=== PATIENT | female | born 1950 | race Caucasian/White ===

== ENCOUNTER 2017-06-09 08:22 | Emergency (ER) | payer MEDICARE ==
[2017-06-09] MEDS ORDERED: Naproxen TAB* 250 MG PO ONE (10:25)
--- NOTE | 2017-06-09 10:32 | UC ---
Truncal Trauma HPI - HPI Summary HPI Summary: Was helping put granddaughter to bed last night and fell out of bed, striking corner of table and landing on R rib cage. Had significant pain immediately, today has large scratch with bruise on R abdomen, but pain is focal on R lower anterolateral ribs. Pain worse with sneezing, deep breathing, and movement. Was not able to get much rest last night. - History Of Current Complaint Chief Complaint: UCUpperExtremity Stated Complaint: RIB INJURY Time Seen by Provider: 06/09/17 10:09 Hx Obtained From: Patient Hx Last Menstrual Period: "Years ago." ?: No Onset/Duration: Sudden Onset Onset Of Pain: Immediate Severity Initially: Moderate Severity Currently: Severe Mechanism Of Injury: Fall From Height Of: - ~2 feet Aggravating Factor(s): Movement, Deep Breathing, Cough Alleviating factor(s): Rest, Ice - Allergies/Home Medications Allergies/Adverse Reactions: Allergies Allergy/AdvReac Type Severity Reaction Status Date / Time Tetracycline Allergy Severe Unknown Verified 06/09/17 08:38 Reaction Details Atorvastatin [From Lipitor] Allergy Unknown Verified 06/09/17 08:38 Reaction Details Clarithromycin [From Biaxin] Allergy Unknown Verified 06/09/17 08:38 Reaction Details Methylprednisolone Allergy Unknown Verified 06/09/17 08:38 [From Medrol] Reaction Details Simvastatin Allergy Unknown Verified 06/09/17 08:38 Reaction Details erythromycin Allergy Severe Rash Uncoded 06/09/17 08:38 amox-tr Allergy Intermediate Vomiting Uncoded 06/09/17 08:38 PMH/Surg Hx/FS Hx/Imm Hx Respiratory History: Asthma Other History Of: Anticoagulant Therapy - Aspirin for health. Negative For: HIV, Hepatitis B, Hepatitis C - Surgical History Surgical History: Yes Surgery Procedure, Year, and Place: Hysterectomy, Urethra musculature collapse repair - Family History Known Family History: Positive: Cardiac Disease Negative: Hypertension, Diabetes - Social History Alcohol Use: Weekly Alcohol Amount: 2-3 glasses of wine Substance Use Type: None Smoking Status (MU): Never Smoked Tobacco Review of Systems Constitutional: Negative Skin: Bruising Eyes: Negative ENT: Negative Respiratory: Negative Cardiovascular: Negative Gastrointestinal: Negative Genitourinary: Negative Motor: Negative Neurovascular: Negative Musculoskeletal: Arthralgia - R ribs Neurological: Negative Psychological: Negative Is Patient Immunocompromised?: No All Other Systems Reviewed And Are Negative: Yes Physical Exam Triage Information Reviewed: Yes Appearance: Well-Nourished, Pain Distress - marked, wincing, grimacing, unable to take deep breaths Vital Signs: Initial Vital Signs Temp 97.8 F 06/09/17 08:33 Pulse 77 06/09/17 08:33 Resp 18 06/09/17 08:33 BP 128/72 06/09/17 08:33 Pulse Ox 97 06/09/17 08:33 Vital Signs Reviewed: Yes Eye Exam: Normal Eyes: Positive: Conjunctiva Clear ENT Exam: Normal ENT: Positive: Normal ENT inspection, Hearing grossly normal, Pharynx normal, TMs normal. Negative: TM bulging, TM dull, TM red Dental Exam: Normal Neck exam: Normal Neck: Positive: Supple, Nontender, No Lymphadenopathy Respiratory: Positive: Lungs clear, Normal breath sounds Cardiovascular Exam: Normal Cardiovascular: Positive: RRR, No Murmur Musculoskeletal Exam: Other - marked tenderness over R lower anterolateral ribs Musculoskeletal: Positive: Strength Intact, ROM Limited @ - trunk due to pain Neurological Exam: Normal Neurological: Positive: Alert Psychological Exam: Normal Skin Exam: Normal Truncal Trauma Course/Dx - Differential Dx/Diagnosis Provider Diagnoses: R nondisplaced 7th and 8th rib fractures. urinary odor Discharge - Discharge Plan Condition: Stable Disposition: HOME Prescriptions: HYDROcodone/ACETAMIN 5-325 MG* [[place] 5-325 TAB*] 1 tab PO Q4H PRN #15 tab MDD 6 PRN Reason: Pain Patient Education Materials: Rib Fracture (ED) Referrals: Anam Sanchez MD [Primary Care Provider] - Additional Instructions: Keep using naproxen twice daily as needed for pain. Can use compression for short periods of time. Make sure you stay as active as possible, and make sure you are taking deep breaths every hour. Urine culture pending. Please follow up with Dr. Sanchez's office in a week for a recheck (to take vital signs, listen to your lungs, and check in on pain control).
[2017-06-09 10:52] VITALS: BP 139/85
--- NOTE | 2017-06-09 11:08 | RAD ---
Indication: RIGHT lower lateral/anterior rib pain for one day post fall from bed. Remote history of rib fractures. Comparison: August 02, 2014 Technique: Dual energy PA chest and 4 view RIGHT rib series. Report: Nondisplaced fractures of the RIGHT seventh and eighth ribs laterally. Negative for pleural effusion or pneumothorax. Clear lungs. The heart, pulmonary vasculature, and mediastinal contours are unremarkable. IMPRESSION: Nondisplaced RIGHT seventh and eighth rib fractures. Negative for pneumothorax.
--- NOTE | 2017-06-11 14:52 | ED ---
Progress - Progress Note Progress Note: Urine culture positive Enterococcus Faecalis >100,000. Please call patient and inform of urine culture indicating presence of UTI. Macrobid 100mg PO BID x 5 days. Please inform patient that sensitivity results are pending and will receive a call if change in antibiotic is indicated. Course/Dx - Diagnoses Provider Diagnoses: Urinary tract infection
== END 2017-06-09 11:29 | disposition home or self-care (01) ==
LOC: UCEAST 08:22
DX: S22.41XA Multiple fractures of ribs, right side, initial encounter for closed fracture (principal); W06.XXXA Fall from bed, initial encounter; Y93.89 Activity, other specified; Y92.003 Bedroom of unspecified non-institutional (private) residence as the place of occurrence of the external cause; Y99.9 Unspecified external cause status; R82.90 Unspecified abnormal findings in urine; B95.2 Enterococcus as the cause of diseases classified elsewhere; Z79.82 Long term (current) use of aspirin
CPT/HCPCS: 81003; 87077; 87086; 87186; 99212; A9270-GY; G0463

== ENCOUNTER 2017-08-23 08:08 | Emergency (ER) | payer MEDICARE ==
[2017-08-23 08:29] VITALS: BP 126/84
--- NOTE | 2017-08-23 08:38 | UC ---
Respiratory Complaint HPI - HPI Summary HPI Summary: 67 yo female ill for days with f/c, ALVES, runny nose, cough,fatigue, sore throat, ear ache n/v x 1 - History of Current Complaint Chief Complaint: UCGeneralIllness Stated Complaint: runny nose, aches, cough, and vomiting Time Seen by Provider: 08/23/17 08:20 Hx Obtained From: Patient Hx Last Menstrual Period: "Years ago." Onset/Duration: Gradual Onset, Lasting Days Timing: Constant Severity Initially: Moderate Severity Currently: Moderate Pain Intensity: 5 Pain Scale Used: 0-10 Numeric Character: Cough: Productive Aggravating Factors: Nothing Alleviating Factors: Nothing Associated Signs And Symptoms: Positive: Fever, Chills, Nasal Congestion, Sinus Discomfort - Allergies/Home Medications Allergies/Adverse Reactions: Allergies Allergy/AdvReac Type Severity Reaction Status Date / Time MS Tetracycline Allergy Severe Unknown Verified 08/19/17 13:31 [Tetracycline] Reaction Details MS Atorvastatin Allergy Unknown Verified 08/19/17 13:31 [From Lipitor] Reaction Details MS Clarithromycin Allergy Unknown Verified 08/19/17 13:31 [From Biaxin] Reaction Details MS Methylprednisolone Allergy Unknown Verified 08/19/17 13:31 [From Medrol] Reaction Details MS Simvastatin [Simvastatin] Allergy Unknown Verified 08/19/17 13:31 Reaction Details erythromycin Allergy Severe Rash Uncoded 08/19/17 13:31 amox-tr Allergy Intermediate Vomiting Uncoded 08/19/17 13:31 PMH/Surg Hx/FS Hx/Imm Hx Previously Healthy: Yes Respiratory History: Pneumonia Psychological History: Anxiety Other History Of: Anticoagulant Therapy - Aspirin for health. Negative For: HIV, Hepatitis B, Hepatitis C - Surgical History Surgical History: Yes Surgery Procedure, Year, and Place: Hysterectomy, Urethra musculature collapse repair 30+ years ago - Family History Known Family History: Positive: Cardiac Disease Negative: Hypertension, Diabetes - Social History Alcohol Use: Occasionally Alcohol Amount: 1 glasses of wine Substance Use Type: None Smoking Status (MU): Never Smoked Tobacco Review of Systems Constitutional: Fever, Chills, Fatigue Skin: Negative Eyes: Negative ENT: Sore Throat, Ear Ache, Nasal Discharge, Sinus Congestion Respiratory: Cough Cardiovascular: Negative Gastrointestinal: Negative Genitourinary: Negative Motor: Negative Neurovascular: Negative Musculoskeletal: Myalgia Neurological: Headache Psychological: Negative Is Patient Immunocompromised?: No All Other Systems Reviewed And Are Negative: Yes Physical Exam Triage Information Reviewed: Yes Appearance: Well-Appearing, No Pain Distress, Well-Nourished Vital Signs: Initial Vital Signs Temp 98.1 F 08/23/17 08:26 Pulse 90 08/23/17 08:26 Resp 16 08/23/17 08:26 BP 126/84 08/23/17 08:26 Pulse Ox 98 08/23/17 08:26 Eyes: Positive: Conjunctiva Clear ENT: Positive: Nasal congestion, Nasal drainage, Uvula midline. Negative: Hearing grossly normal, Pharynx normal, Trismus, Muffled voice, Hoarse voice, Sinus tenderness Neck: Positive: Supple, Nontender, No Lymphadenopathy Respiratory: Positive: Lungs clear, Normal breath sounds, No respiratory distress, No accessory muscle use Cardiovascular: Positive: RRR, No Murmur Abdominal Exam: Normal Musculoskeletal: Positive: ROM Intact, No Edema Neurological: Positive: Alert Psychological Exam: Normal Skin Exam: Normal UC Diagnostic Evaluation - Laboratory Pertinent Lab Values Are: WNL - influenza (-) O2 Sat by Pulse Oximetry: 98 - normal/not hypoxic - Radiology Xray Interpretation: No Acute Changes Radiology Interpretation Completed By: Radiologist Respiratory Course/Dx - Differential Dx/Diagnosis Provider Diagnoses: viral illness. acute cough Discharge - Discharge Plan Condition: Stable Disposition: HOME Prescriptions: Benzonatate CAP* [Tessalon CAP*] 100 - 200 mg PO TID PRN #28 cap PRN Reason: Cough Patient Education Materials: Acute Cough (ED) Referrals: Anam Sanchez MD [Primary Care Provider] - 1 Day (recheck in 1-2 days ) Additional Instructions: rest fluids recheck with your MD early this week
--- NOTE | 2017-08-23 09:43 | RAD ---
INDICATION: Fever and cough x1 week COMPARISON: Most recent comparison chest x-rays dated August 02, 2014 TECHNIQUE: PA and lateral views of the chest were obtained. FINDINGS: The heart and mediastinum are normal in size and contour. The lungs are grossly clear. There is no evidence of large pleural effusion. Visualized bones are normal for the patient's age. There is no radiographic evidence of free air beneath the diaphragm IMPRESSION: No radiographic evidence of acute cardiopulmonary disease.
== END 2017-08-23 10:03 | disposition home or self-care (01) ==
LOC: UCEAST 08:08
DX: B34.9 Viral infection, unspecified (principal); R05 Cough; F41.9 Anxiety disorder, unspecified; Z79.82 Long term (current) use of aspirin; Z88.1 Allergy status to other antibiotic agents; Z88.8 Allergy status to other drugs, medicaments and biological substances; Z90.710 Acquired absence of both cervix and uterus
CPT/HCPCS: 71046; 87502; 99212; G0463

== ENCOUNTER 2017-09-01 10:55 | Day surgery (SDC) | payer MEDICARE ==
[~2017-09-01 10:55] MED LIST: Acetaminophen TAB* 325 MG PO PRN; Buffered Lidocaine 0.9% SYRIN* 5 ML/SYR SYRINGE INTRADERM ONE
[2017-09-01] MEDS ORDERED: Midazolam* 1 MG/ML 2 ML VIAL (2 MG) ONE ×3 (13:03→14:34)
[2017-09-01] MEDS ORDERED: fentaNYL* 50 MCG/ML 2 ML VIAL (100 MCG VIAL) ONE (13:03)
[2017-09-01] MEDS ORDERED: Lidocaine 1% MPF wEPI 200,000* 30 ML SDV ONE (13:24)
[2017-09-01] MEDS ORDERED: Bacitracin OPHTH.OINT* 3.5 GM ONE (13:24)
[2017-09-01] MEDS ORDERED: BSS OPTH.SOL* BTL ONE (13:24)
[2017-09-01 15:07] VITALS: BP 135/70
--- NOTE | 2017-09-02 13:21 | OP ---
DATE OF OPERATION: 09/01/17 [facility] DATE OF : 52 SURGEON: Marquis Iqbal MD SSN/SSBN ASSISTANT NAVIGATOR: None. ANESTHESIA: Local MAC. PRE-OP DIAGNOSIS: Bilateral upper lid blepharochalasis. POST-OP DIAGNOSIS: Bilateral upper lid blepharochalasis. OPERATIVE PROCEDURE: Bilateral upper lid blepharoplasty. COMPLICATIONS: None. BLOOD LOSS: Minimal. DESCRIPTION OF PROCEDURE: The patient was seen preoperatively in the holding area where berumen were made to delineate the proposed skin muscle excision. These berumen paralleled the original lid crease and care was taken to leave over 20 mm of healthy skin. The patient was subsequently brought to the operating room and given a small amount of intravenous sedation. Approximately 1.5 cc of 1 % lidocaine with epinephrine was infiltrated under the skin in each eyelid. The patient was then prepped and draped in usual sterile fashion for ophthalmic surgery and attention was directed to the right upper eyelid. A #15 [employer]- Jay blade was used to incise along the previously marked template. A flap of skin and orbicularis was raised and removed using sharp and blunt dissection with a Patricio scissor. Hemostasis was achieved with cauterization. The septum was violated in a horizontal fashion with Patricio scissors. Gentle pressure on the orbit allowed fat to protrude. Central and nasal fat pads were sequentially clamped, cut and cauterized. No active bleeding is elicited, so the skin muscle was closed in the single layer using a running 6-0 gut suture. Attention was then directed to the contralateral upper eyelid where the exact same procedure was performed. At the end of the case, a small amount of bacitracin ointment was placed. The patient was brought to the recovery room in stable condition with postoperative instructions and followup appointment given. [id number]/[facility] #: [id number] PURVI
== END 2017-09-01 15:25 | disposition home or self-care (01) ==
LOC: OREAST 10:55
PROVIDERS: ATTEND Ophthalmology
DX: H02.34 Blepharochalasis left upper eyelid (principal); H02.31 Blepharochalasis right upper eyelid; G43.009 Migraine without aura, not intractable, without status migrainosus; F41.1 Generalized anxiety disorder; F34.1 Dysthymic disorder; E78.4 Other hyperlipidemia; J45.909 Unspecified asthma, uncomplicated
CPT/HCPCS: A9270-GY; J2001; J2250; J3010

== ENCOUNTER 2019-01-05 10:27 | Day surgery (SDC) | payer MEDICARE, OTHER ==
[~2019-01-05 10:27] MED LIST changes: -Acetaminophen TAB* 325 MG PO PRN; -Buffered Lidocaine 0.9% SYRIN* 5 ML/SYR SYRINGE INTRADERM ONE; +Buffered Lidocaine 1% SYRIN* 1 ML/SYRINGE INTRADERM ONE; +Dexamethasone TAB* 4 MG PO ONE; +DiMENhydriNATE IV* 50 MG/ML VIAL IV PUSH PRN; +Famotidine IV* 10 MG/ML 2 ML (20 mg) IV ONE; +Lactated Ringers 1000 ML Bag* 1,000 ML IV SCH; +Morphine 4 MG/ML VIAL (1 ml) 4 MG/ML VIAL IV PRN; +Naloxone* 0.4 MG/ML 1 ML VIAL IV PRN; +Ondansetron TAB* 4 MG PO ONE; +PROCHLORPERAZINE INJ 5 MG/ML 2 ML VIAL IV PRN; +Scopolamine 1.5 mg* PATCH TRANSDERM PRN; +fentaNYL* 50 MCG/ML 2 ML VIAL (100 MCG VIAL) IV PRN; +oxyCODONE/Acetamin 5/325 MG* TAB PO PRN
[2019-01-05] MEDS ORDERED: Dexamethasone TAB* 4 MG ONE (11:19)
[2019-01-05] MEDS ORDERED: Ondansetron ODT TAB* 4 MG ONE (11:19)
[2019-01-05] MEDS ORDERED: Famotidine IV* 10 MG/ML 2 ML (20 mg) ONE (11:20)
[2019-01-05] MEDS ORDERED: Buffered Lidocaine 1% SYRIN* 1 ML/SYRINGE INTRADERM ONE (11:20)
[2019-01-05] MEDS ORDERED: KETAMINE HCL* 50 MG/ML 10 ML VIAL ONE (11:28)
[2019-01-05] MEDS ORDERED: fentaNYL* 50 MCG/ML 2 ML VIAL (100 MCG VIAL) ONE (11:28)
[2019-01-05] MEDS ORDERED: Midazolam* 1 MG/ML 5 ML VIAL (5 MG) ONE (11:28)
[2019-01-05] MEDS ORDERED: Oxymetazoline 0.05% NASAL SPR* 15 ML BTL ONE (12:02)
[2019-01-05] MEDS ORDERED: Lidocaine 2% EPI 1:200000 MPF*10-20 ML VIAL ONE (12:02)
[2019-01-05] MEDS ORDERED: Ketorolac INJ* 30 MG/ML 1 ML VIAL ONE (12:15)
[2019-01-05] MEDS ORDERED: Propofol* 10 MG/ML 20 ML BTL ONE (12:15)
[2019-01-05] MEDS ORDERED: Lidocaine 2% PF * 5 ML VIAL ONE (12:15)
[2019-01-05 13:15] VITALS: BP 130/90
--- NOTE | 2019-01-05 13:18 | OP ---
OPERATIVE REPORT: DATE OF OPERATION: 01/05/19 DATE OF : 52 SURGEON: Nigel Mayer MD. PRE-OP DIAGNOSES: Subsequent nasal fracture with dorsal hump and nasal dyspnea with hypertrophied na ada turbinates. POST-OP DIAGNOSIS: Subsequent nasal fracture with dorsal hump and nasal dyspnea with hypertrophied n kinga turbinates. OPERATIVE PROCEDURES: Resection of posterior dorsal nasal hump and submucosal resection of inferior turbinates. INDICATION: This 68-year-old female with previous history of nasal fracture at the time elected not to have any closed reduction, but subsequent to that, she had a large dorsal hump. She wears glasses and found that it was constantly irritated, sometimes ulcerated, and oftentimes uncomfortable with a large sharp projection in the dorsum of her nose. She also had had because of her injury some nasal congestion, which appeared to be contributed with the turbinate hypertrophy. DESCRIPTION OF PROCEDURE: The patient was taken to the operating room, general anesthetic was given, the patient was intubated with LMA. Nose was decongested with Afrin-placed pledgets. Subsequently, 2% lidocaine with epinephrine was introduced into the junction between the upper cartilage and the j unction of the nasal bone. Small incision was made. Periosteal elevator was used to elevate the per iosteum. Subsequently, a rasp was used to shave off the bony projection. The area was suctioned out and cleaned with some irrigation. The incision was closed with chromic. Next, we turned our attent ion to the inferior turbinates. A small incision of the inferior turbinate mucosa was carried out. Submucosal resection was carried out and a subsequent cautery was carried out on both sides for hemos tasis. Once adequate hemostasis obtained, the patient was awakened, extubated, and sent to recovery room in stable condition. COUNTS: Instrument and sponge counts were correct. BLOOD LOSS: Minimal. [id number]/[facility] #: [id number]
[2019-01-08] MEDS ORDERED: Scopolamine PATCH Remove* 1 NOTE MISC PATCH OFF ONE (05:47)
== END 2019-01-05 14:05 | disposition home or self-care (01) ==
LOC: OR 10:27
PROVIDERS: ATTEND Otolaryngology
DX: M95.0 Acquired deformity of nose (principal); J34.3 Hypertrophy of nasal turbinates
CPT/HCPCS: A9270-GY; J1885; J2250; J2704; J3010; J8540

== ENCOUNTER 2019-09-27 06:17 | Day surgery (SDC) | payer MEDICARE ==
[~2019-09-27 06:17] MED LIST changes: +Acetaminophen TAB* 325 MG PO PRN; -Dexamethasone TAB* 4 MG PO ONE; -DiMENhydriNATE IV* 50 MG/ML VIAL IV PUSH PRN; -Famotidine IV* 10 MG/ML 2 ML (20 mg) IV ONE; -Lactated Ringers 1000 ML Bag* 1,000 ML IV SCH; -Morphine 4 MG/ML VIAL (1 ml) 4 MG/ML VIAL IV PRN; -Naloxone* 0.4 MG/ML 1 ML VIAL IV PRN; -Ondansetron TAB* 4 MG PO ONE; -PROCHLORPERAZINE INJ 5 MG/ML 2 ML VIAL IV PRN; -Scopolamine 1.5 mg* PATCH TRANSDERM PRN; -fentaNYL* 50 MCG/ML 2 ML VIAL (100 MCG VIAL) IV PRN; -oxyCODONE/Acetamin 5/325 MG* TAB PO PRN
[2019-09-27] MEDS ORDERED: fentaNYL* 50 MCG/ML 2 ML VIAL (100 MCG VIAL) ONE (07:26)
[2019-09-27] MEDS ORDERED: Midazolam* 1 MG/ML 5 ML VIAL (5 MG) ONE (07:26)
[2019-09-27 08:12] VITALS: BP 124/72
[2019-09-27] MEDS ORDERED: Cyclopentolate 1% OPTH.SOL* 2 ML BTL ONE (11:01)
[2019-09-27] MEDS ORDERED: Phenylephrine OPHTH SOL 2.5%* 2 ML ONE (11:01)
[2019-09-27] MEDS ORDERED: Ketorolac 0.5% OPHTH (NF) 0.5 % 5 ML BTL ONE (11:01)
[2019-09-27] MEDS ORDERED: Tropicamide 1% OPTH.SOL* BTL ONE (11:01)
[2019-09-27] MEDS ORDERED: Tetracaine 0.5% OPTH.SOL 4 ML* 1 DROP BTL ONE (11:01)
[2019-09-27] MEDS ORDERED: Neomycin/Polymy/Dex OPHTH.OIN* 3.5 GM ONE (11:01)
[2019-09-27] MEDS ORDERED: Lidocaine 1% MPF ** 5 ML VIAL ONE (11:01)
[2019-09-27] MEDS ORDERED: Phenylephr/Ketorolac 1%/0.3% OPH DROP BTL ONE (11:28)
--- NOTE | 2019-09-28 01:05 | OP ---
DATE OF OPERATION: 09/27/19 [facility] DATE OF : 52 SURGEON: Marquis Iqbal MD MASTER [employer]: None. ANESTHESIA: Topical with intravenous sedation. PRE-OP DIAGNOSIS: Cataract with astigmatism, left eye. POST-OP DIAGNOSIS: Cataract with astigmatism, left eye. OPERATIVE PROCEDURE: Phacoemulsification and cataract extraction with posterior chamber toric intraocular lens implant, left eye. COMPLICATIONS: None. ESTIMATED BLOOD LOSS: None. DESCRIPTION OF PROCEDURE: The patient was brought to the operating room and given intravenous sedation. A drop of tetracaine was placed in her left eye. The patient was prepped and draped in the usual sterile fashion for ophthalmic surgery and attention was directed to the left eye where a speculum was placed. A paracentesis was created at the 5 o'clock position and 0.1 cc of 1% preservative free lidocaine was injected into the anterior chamber followed by DisCoVisc. The eye was digitally stabilized while a 2.75 mm keratome was used to create a triplanar clear corneal incision at the 3 o'clock position. A continuous curvilinear capsulorrhexis was created using a cystotome and Utrata forceps. BSS on a cannula was used to hydrodissect the lens from the capsule. Phacoemulsification was performed in a wadtih-qnf-[id number] technique to create 4 fragments which were removed. Residual cortical material was removed with irrigation and aspiration. Provisc was used to inflate the capsular bag. Intraocular pressure was measured. The surface of the eye was lubricated. The ORA device was employed. An SN6AT3 22.5 diopter lens was chosen. The lens was folded and inserted into the capsular bag. The reticule on the ORA help to guide axial alignment to approximately 100 degrees. The lens was stabilized in this position using a Sinskey hook with paracentesis. Irrigation and aspiration were performed to remove viscoelastic from the eye. The Sinskey hook was removed. BSS on a cannula was used to hydrate the corneal stroma and seal the wound. At the end of the case, the pupil was round. The lens was centered, stable, and axially aligned. The eye pressure appeared normal and the wound was water tight. The speculum was removed. Topical Maxitrol ointment was placed on the surface of the eye. The eye was closed, patched, and shielded, and the patient was sent to recovery room in stable condition with postop instructions and followup appointment given. [id number]/[facility] #: [id number] PURVI
== END 2019-09-27 08:23 | disposition home or self-care (01) ==
LOC: OREAST 06:17
PROVIDERS: ATTEND Ophthalmology
DX: H25.12 Age-related nuclear cataract, left eye (principal); H52.202 Unspecified astigmatism, left eye; J45.909 Unspecified asthma, uncomplicated; E78.5 Hyperlipidemia, unspecified; F41.9 Anxiety disorder, unspecified; K58.9 Irritable bowel syndrome, unspecified
CPT/HCPCS: A9270-GY; J1097; J2250; J3010; V2787

== ENCOUNTER 2019-10-04 07:31 | Day surgery (SDC) | payer MEDICARE ==
[2019-10-04] MEDS ORDERED: Midazolam* 1 MG/ML 5 ML VIAL (5 MG) ONE (08:46)
[2019-10-04] MEDS ORDERED: fentaNYL* 50 MCG/ML 2 ML VIAL (100 MCG VIAL) ONE (09:11)
[2019-10-04 09:42] VITALS: BP 140/75
[2019-10-04] MEDS ORDERED: Phenylephrine OPHTH SOL 2.5%* 2 ML ONE (10:07)
[2019-10-04] MEDS ORDERED: Cyclopentolate 1% OPTH.SOL* 2 ML BTL ONE (10:07)
[2019-10-04] MEDS ORDERED: Tetracaine 0.5% OPTH.SOL 4 ML* 1 DROP BTL ONE (10:07)
[2019-10-04] MEDS ORDERED: Neomycin/Polymy/Dex OPHTH.OIN* 3.5 GM ONE (10:07)
[2019-10-04] MEDS ORDERED: Tropicamide 1% OPTH.SOL* BTL ONE (10:07)
[2019-10-04] MEDS ORDERED: Lidocaine 1% MPF ** 5 ML VIAL ONE (10:07)
[2019-10-04] MEDS ORDERED: Ketorolac 0.5% OPHTH (NF) 0.5 % 5 ML BTL ONE (10:07)
--- NOTE | 2019-10-04 10:21 | OP ---
DATE OF OPERATION: 10/04/19 [facility] DATE OF : 52 SURGEON: Marquis Iqbal MD. SENIOR SOFTWARE ENGINEER: None. ANESTHESIA: Topical with intravenous sedation. PRE-OP DIAGNOSIS: Cataract with astigmatism, right eye. POST-OP DIAGNOSIS: Cataract with astigmatism, right eye. OPERATIVE PROCEDURE: Phacoemulsification cataract extraction with posterior chamber toric intraocular lens implant, right eye. COMPLICATIONS: None. ESTIMATED BLOOD LOSS: None. DESCRIPTION OF PROCEDURE: The patient was brought to the operating room and received intravenous sedation. A drop of tetracaine was placed in her right eye. The patient was prepped and draped in the usual sterile fashion for ophthalmic surgery and attention was directed to the right eye where a speculum was placed. A paracentesis was created at the 11 o'clock position and 0.1 cc of 1% preservative- free lidocaine was injected into the anterior chamber followed by DisCoVisc. The eye was digitally stabilized while a 2.75 mm keratome was used to create a triplanar clear corneal incision at the 9 o'clock position. A continuous curvilinear capsulorrhexis was created using a cystotome and Utrata forceps. BSS on a cannula was used to hydrodissect the lens from the capsule. Phacoemulsification was performed in a [id number]-[id number]-[id number] technique to create 4 fragments which were removed. Residual cortical material was removed with irrigation and aspiration. The capsular bag was polished. The eye was inflated with Provisc. The eye pressure was checked and found to be appropriate. The surface of the eye was lubricated. The ORA device was employed and an SN6AT3 22.5 diopter lens was chosen. This lens was folded and inserted into the capsular bag. It was rotated to the appropriate axial alignment of approximately 81 degrees as per the preoperative measurements and ORA. The lens was stabilized in this position while irrigation and aspiration were performed to remove viscoelastic from the eye. BSS on a cannula was used to hydrate the cornea and seal the wound. At the end of the case, the lens was centered, stable, and axially aligned. The eye pressure was normal. The wound was watertight. The speculum was removed from the eye. Topical Maxitrol ointment was placed on the surface of the eye and the eye was closed, patched, and shielded. The patient was sent to the recovery room in stable condition with postop instructions and followup appointment given. [id number]/[facility] #: [id number] PURVI
[2019-10-04] MEDS ORDERED: Phenylephr/Ketorolac 1%/0.3% OPH DROP BTL ONE (14:05)
== END 2019-10-04 09:49 | disposition home or self-care (01) ==
LOC: OREAST 07:31
PROVIDERS: ATTEND Ophthalmology
DX: H25.11 Age-related nuclear cataract, right eye (principal); H52.201 Unspecified astigmatism, right eye; Z88.8 Allergy status to other drugs, medicaments and biological substances; J45.909 Unspecified asthma, uncomplicated; M19.90 Unspecified osteoarthritis, unspecified site; R06.02 Shortness of breath; R05 Cough
CPT/HCPCS: A9270-GY; J1097; J2250; J3010; V2787